=== PATIENT | female | born 1960 | race Caucasian/White ===

== ENCOUNTER 2021-12-12 09:55 | Outpatient (CLI) | payer OTHER, SELFPAY | END 2021-12-12 09:56 | disposition home or self-care (01) | LOC: ANHEH 10:00 | DX: Z76.89 Persons encountering health services in other specified circumstances (principal) | CPT/HCPCS: 80307 ==

== ENCOUNTER 2022-06-18 08:55 | Outpatient (CLI) | payer OTHER, SELFPAY ==
[2022-06-18 15:52] LABS: Alanine Aminotransferase 22 U/L (6-35); Albumin Level 4.4 g/dL (3.5-5.1); Alkaline Phosphatase 93 U/L (38-126); Anion Gap 4 mmol/L (8-16); Aspartate Amino Transferase 29 U/L (14-36); Bilirubin,Total 0.5 mg/dL (0.2-1.3); Blood Urea Nitrogen 17 mg/dL (7-17); Carbon Dioxide 30 mmol/L (22-30); Chloride 104 mmol/L (98-107); Cholesterol 221 mg/dL (0-200); Estimated Glomerular Filt Rate > 60; Glucose 96 mg/dL (65-110); HDL Direct 67 mg/dL; Potassium 3.7 mmol/L (3.4-5.0); Sodium 138 mmol/L (137-145); Triglycerides 152 mg/dL (<150)
[2022-06-18 16:02] LABS: LDL Cholesterol Direct 102 mg/dL
[2022-06-18 16:18] LABS: Thyroid Stimulating Hormone 0.748 uIU/mL (0.465-4.680)
== END 2022-06-18 08:56 | disposition home or self-care (01) ==
LOC: ANHGOSHLAB 08:58
PROVIDERS: Visit Provider Internal Medicine
DX: Z00.00 Encounter for general adult medical examination without abnormal findings (principal); E03.9 Hypothyroidism, unspecified
CPT/HCPCS: 36415; 80053; 80061; 84443

== ENCOUNTER 2023-06-25 09:37 | Outpatient (CLI) | payer OTHER, SELFPAY ==
[2023-06-25 14:15] LABS: Hemoglobin A1C 5.5 % (<5.7)
[2023-06-25 14:27] LABS: Alanine Aminotransferase 15 U/L (6-35); Albumin Level 4.2 g/dL (3.5-5.1); Alkaline Phosphatase 85 U/L (38-126); Anion Gap 3 mmol/L (8-16); Aspartate Amino Transferase 51 U/L (14-36); Bilirubin,Total 0.5 mg/dL (0.2-1.3); Blood Urea Nitrogen 19 mg/dL (7-17); Calcium 9.4 mg/dL (8.4-10.2); Carbon Dioxide 29 mmol/L (22-30); Chloride 107 mmol/L (98-107); Cholesterol 194 mg/dL (0-200); Estimated Glomerular Filt Rate > 60; Glucose 85 mg/dL (65-110); HDL Direct 58 mg/dL; Potassium 4.2 mmol/L (3.4-5.0); Sodium 139 mmol/L (137-145); Triglycerides 120 mg/dL (<150)
[2023-06-25 14:38] LABS: LDL Cholesterol Direct 99 mg/dL
[2023-06-25 15:00] LABS: Thyroid Stimulating Hormone 0.575 uIU/mL (0.465-4.680)
== END 2023-06-25 09:38 | disposition home or self-care (01) ==
LOC: ANHGOSHLAB 09:40
PROVIDERS: Visit Provider Internal Medicine
DX: Z00.00 Encounter for general adult medical examination without abnormal findings (principal); E03.9 Hypothyroidism, unspecified; Z83.3 Family history of diabetes mellitus
CPT/HCPCS: 36415; 80053; 80061; 83036; 84443

== ENCOUNTER → 2024-06-28 16:33 | Outpatient (REF) | payer OTHER, SELFPAY ==
--- OUTSIDE RECORDS SUMMARY | 2024-06-28 18:39 | XMS_ITS | Clinical Summary ---
Author Organization [facility] [place] Address [address] [facility] [place] [address] Phone Care Team Providers Care Handle Turner Name Role Phone Dionicio Christensen MD Primary Care Provider [phone] Allergies Active Allergy Reactions Criticality Noted Date Comments Sulfa (Sulfonamide Antibiotics) Hives High 09/02 Tetracycline Hives High 09/18/2010 Medications venlafaxine (EFFEXOR XR) 150 mg Extended Release 24 hour capsuleIndications :Ultrasound scan abnormal Take 150 mg by mouth daily. Active simvastatin (ZOCOR) 20 mg tabletIndications: Ultrasound scan abnormal Take 20 mg by mouth Daily LATE. Active cholecalciferol, vitamin D3, 5,000 unitIndications:Ul trasound scan abnormal Take by mouth. Active aspirin (FRANKLIN) 81 mg Oral TabIndications:Fib rocystic disease of breast, proliferative type with atypia,Breast cancer screening, high risk patient Take by mouth. Active levothyroxine 100 mcg Oral tablet Take 100 mcg by mouth daily used car lot porter. Active LORazepam (ATIVAN) 1 mg tablet 12/26/2014 Active pantoprazole (PROTONIX) 40 mg Tablet, Delayed Release (E.C.) Take 40 mg by mouth daily. Active losartan (COZAAR) 100 mg tablet Take 100 mg by mouth daily. 06/30/2023 06/29/19 25 Active Active Problems Patient Care Coordination No te Formatting of this note migh t be different from the original. Primary Care: Dionicio Christensen MD Referring Provider: Dionicio Christensen MD [address] [place] [address] [id number] [place] [address] Other: Problem Noted Date Diagnosed Date Abnormal mammogram of left breast 02/12/2017 Unspecified hypothyroidism 10/10/2010 Vitamin D deficiency 10/10/2010 Atypia 10/09/2010 Overview (04/25/2011): 09/18/10 RIGHT bx - flat epithelial atypia - single focus 04/25/11 EVISTA Assessment & Plan (04/20/2013 11:05 AM KEY RINGER): On Evista 2 years mammo [place] Assessment & Plan (04/21/2012 10:35 AM KEY RINGER): On evista 1 year MRI last week Mammo UTD ROV 1 year Assessment & Plan (04/25/2011 10:42 AM KEY RINGER): Atypia Off testosterone and estrogen EVISTA today Cystic breast - sees DMR in October ROV 1 year Assessment & Plan (10/10/2010 10:16 AM CDT): IOV Mastitis in July - fluid pocket - Abx - followup showed mass on ultrasound On hormone pellets JACK/BSO age 38 and has been on HRT Clarissa 2% and 17% Hard lateral right breast - get MRI ROV 6 months Unspecified deficiency anemia IBS (irritable bowel syndrome) Depression Anxiety Joint ache MVP (mitral valve prolapse) Overview (10/09/2010): Slight regurg Hyperlipidemia Encounters Date Type Department Care Team Description 06/23/2024 External Device Data STL ABSTRACTION Provider, Abstract 06/15/2024 External Device Data ST[facility] ABSTRACTION Provider, Abstract 06/08/2024 External Device Data [facility] ABSTRACTION Provider, Abstract 05/27/2024 External Device Data ST[facility] ABSTRACTION Provider, Abstract 05/18/2024 External Device Data [facility] ABSTRACTION Provider, Abstract from Last 3 Months Family History Medical History Relation Name Comments Cancer Father multiple myloma Heart Disease Maternal Grandmother Other Maternal Grandmother diabete s Aneurysm Mother Heart Disease Mother Hypertension Mother Healthy Son 1 Healthy Son 2 Healthy Son 3 Breast Cancer Neg Hx Ovarian Cancer Neg Hx Relation Name Status Comments Father Maternal Grandmother Mother Son 1 Alive Son 2 Alive Son 3 Alive Social History Tobacco Use Types Packs/Day Years Used Date Smoking Tobacco: Former Cigarettes 0.3 15 Smokeless Tobacco: Never Tobacco Cessation:Counseling Given: Not Answered Comments:QUIT 20yrs ago Alcohol Use Standard Drinks/Week Comments Yes 0 (1 standard drink = 0.6 oz pur e alcohol) rare Feeling Safe Answer Date Recorded Fear of Current or Ex-Partner Not on file Emotionally Abused Not on file 02/23/2024 Within the last year, have y ou been kicked, hit, slapped, or otherwise physically hurt by your partner or ex-partner? 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 file Not on file Not on file Not on file Not on file Not on file Not on file Last Filed Vital Signs Vital Sign Reading Time Taken Comments Blood Pressure 124/74 02/23/2024 11:24 AM CDT Pulse 84 02/21/2022 11:33 AM CDT Temperature 36.9 C (98.5 F) 02/21/2022 11:33 AM CDT Respiratory Rate 16 04/18/2016 11:43 AM KEY RINGER Oxygen Saturation 96% 02/21/2022 11:33 AM CDT Inhaled Oxygen Concentration - - Weight 81.6 kg (180 lb) 02/23/2024 11:24 AM CDT Height 175.3 cm (5' 9 ) 02/23/2024 11:24 AM CDT Body Mass Index 26.58 02/23/2024 11:24 AM CDT Plan of Treatment Upcoming Encounters Date Type Department Care Team (Late st Contact Info) Description 08/30/2024 1:00 PM CDT Appointment [facility] Lisa Maxwell [address] [place] [phone] Marycruz Altamirano, VOLUNTEER SPECIALIST [address] [place] [phone] 03/02/2025 10:45 AM CDT Appointment [facility] Lisa Maxwell [address] [place] [phone] Marycruz Altamirano, VOLUNTEER SPECIALIST [address] [place] [address] 03/02/2025 11:45 AM CDT Office Visit [facility] Breast Surgery Lisa Maxwell [address] [place] [place] [address] Marycruz Altamirano, VOLUNTEER SPECIALIST [address] [place] [address] Health Maintenance Due Date Last Done Comments Pre-Diabetes and Diabetes Screening 1960 CERVICAL CANCER SCREENING 1990 FIT-DNA Q 3 years 2005 FIT/FOBT Q 1 year 2005 Flex Sig/CT Colonography Q 5 years 2005 ZOSTER VACCINE (1 of 2) 2010 INFLUENZA VACCINE (#1) 2023 8, 02/21/2016, 03/02/2011 BREAST CANCER SCREENING 03/05/2025 03/05/20, 02/23/2024, 02/21/2023, Additional history exists DTAP/TDAP/TD VACCINES (3 - Td or Tdap) 05/24/2030 05/24/2020, 12/29/2009 COLORECTAL SCREENING 08/05/2032 08/05/2022, 08/05/2022, 06/28/2014, Additional history exists Colorectal Cancer Screening 08/05/2032 RSV VACCINE (60+ or ) (1 - 1-dose 75+ series) 2035 PNEUMOCOCCAL VACCINE 0-64 YEARS Aged Out No longer eligible based on patient's age to complete this topic Procedures Procedure Name Priority Date/Time Associated Diagnosis Comments MAMMO DIAG UNI LEFT 3D RATNA W OR WO CAD Routine 03/05/2024 2:47 PM CDT Abnormal mammogram from Last 3 Months or Most Recently Relevant to Health Maintenance Results * MAMMO 3D RATNA DIAGNOSTIC UNI LT W OR WO CAD (03/05/2024 2:47 PM CDT) Anatomical Region Laterality Modality Breast Left Mammography 03/05/2024 2:47 PM CDT Impressions 03/05/2024 3:39 PM CDT IMPRESSION: A small benign lesion at the inferior aspect of the left breast likely representing a cyst. It has decreased in size. RECOMMENDATIONS: Bilateral annual screening mammogram. LEFT BREAST OVERALL ASSESSMENT: BI-RADS Category 2 benign findings. DICTATION LOCATION: [facility] Jessica Maxwell Narrative 03/05/2024 3:39 PM CDT MAMMOGRAPHY DIGITAL DIAGNOSTIC UNILATERAL LEFT 3-D TOMOGRAPHY WITH OR WITHOUT CAD, 03/05/2024. HISTORY: The screening mammogram dated 02/23/2024 showed a small mass in the inferior aspect of the left breast. MAMMOGRAPHIC FINDINGS: The left breast is heterogeneously dense which may lower sensitivity of mammography. A small isodense mass with smooth margins in the inferior aspect of the left breast is again visualized which has decreased in size. It suggests a benign lesion such as a cyst. No malignant calcification or architectural distortion is identified. Procedure Note Lilly Mar MD - 03/05/2024 MAMMOGRAPHY DIGITAL DIAGNOSTIC UNILATERAL LEFT 3-D TOMOGRAPHY WITH OR WITHOUT CAD, 03/05/2024. HISTORY: The screening mammogram dated 02/23/2024 showed a small mass in the inferior aspect of the left breast. MAMMOGRAPHIC FINDINGS: The left breast is heterogeneously dense which may lower sensitivity of mammography. A small isodense mass with smooth margins in the inferior aspect of the left breast is again visualized which has decreased in size. It suggests a benign lesion such as a cyst. No malignant calcification or architectural distortion is identified. IMPRESSION: A small benign lesion at the inferior aspect of the left breast likely representing a cyst. It has decreased in size. RECOMMENDATIONS: Bilateral annual screening mammogram. LEFT BREAST OVERALL ASSESSMENT: BI-RADS Category 2 benign findings. DICTATION LOCATION: [facility] Jessica Maxwell Marycruz Altamirano [facility] MAMMO ORDERABLES Final Re sult from Last 3 Months or Most Recently Relevant to Health Maintenance Insurance [facility] [id number] Advance Directives For more information, please contact: [phone] * Full Code (Latest Code Status on File) Date Activated Date Inactivated Comments 09/27/2010 7:46 AM 09/27/2010 1:32 PM Care Teams Handle Turner Relationship Specialty Start Date End Date Dionicio Christensen MD [address] [place] [address] DR SOTO [address] [place] [phone] PCP - General Internal Medicine 09/18/10
--- OUTSIDE RECORDS SUMMARY | 2024-06-28 18:39 | XMS_ITS | Referral Summary ---
Author Organization [facility] Address [address] [place] [phone] Care Team Providers Care Paper Reeler Name Role Phone Dionicio Christensen MD Primary Care Provider Encounters Date Type Department Care Team Description 05/14/2024 Orders Only [facility] Primary Care at [address] [place] [address] Dionicio Christensen MD 05/14/2024 Telephone [facility] Medical [facility] Primary Care at [address] [phone] Dionicio Christensen MD Med Refill from Last 3 Months Allergies Active Allergy Reactions Criticality Noted Date Comments Sulfa (Sulfonamide Antibiotics) Rash Medium Sulfanilamide Rash Medium Tetracycline Rash Medium Medications aspirin 81 mg tablet take 1 tablet by oral route every day 0 0 06/03/2016 Active cholecalciferol (VITAMIN D3) 1,000 unit capsule 0 10/12/2009 Active vitamin B complex capsule Take 1 capsule by mouth daily Active venlafaxine XR (EFFEXOR-XR) 150 mg 24 hr capsule Take 1 capsule (150 mg total) by mouth daily 90 capsule 3 06/30/2023 Active LORazepam (ATIVAN) 0.5 mg tablet TAKE 1 TABLET BY MOUTH 3 TIMES DAILY 90 tablet 5 02/09/2024 Active linaCLOtide (LINZESS) 145 mcg capsule Take 1 capsule (145 mcg total) by mouth daily 15 capsule 1 02/20/2024 Active levothyroxine (SYNTHROID) 100 mcg tablet Take 1 tablet (100 mcg total) by mouth daily 90 tablet 3 05/14/2024 Active losartan (COZAAR) 100 mg tablet Take 1 tablet (100 mg total) by mouth daily To lower BP 90 tablet 3 05/14/[address] (PROTONIX) 40 mg EC tablet Take 1 tablet (40 mg total) by mouth daily 90 tablet 3 05/14/2024 Active simvastatin (ZOCOR) 20 mg tablet Take 1 tablet (20 mg total) by mouth nightly 90 tablet 3 05/14/2024 Active Active Problems Problem Noted Date Diagnosed Date Moderate episode of recurrent major depressive d isorder 02/20/2024 Personal history of colonic polyps 07/02/2022 Overview (07/02/2022): Added automatically from request for surgery [id number] Anxiety 03/19/2022 Deficiency anemia 03/19/2022 IBS (irritable bowel syndrome) 03/19/2022 Joint ache 03/19/2022 MVP (mitral valve prolapse) 03/19/2022 Overview (03/19/2022): Slight regurg Ulnar nerve compression, right 12/31/2021 Ulnar tunnel syndrome of right wrist 12/31/2021 Cubital tunnel syndrome on right 12/31/2021 History of 2019 novel coronavirus disease (COVID -19) 06/26/2021 Lower resp. tract infection 01/26/2019 Assessment & Plan (01/26/2019 9:26 AM CDT): Recommended 10 day course of Augmentin to assist with improved gram + bacterial coverage given little improvement with Z-Alexys. I did encourage her to call back into the clinic with persistent sx to consider CXR Abnormal mammogram of left breast 02/12/2017 Hypothyroidism 09/18/2013 Overview (08/08/2016): HYPOTHYROIDISM NOS Multiple-type hyperlipidemia 09/18/2013 Overview (08/09/2016): MIXED HYPERLIPIDEMIA Malaise and fatigue 09/18/2013 Overview (08/09/2016): MALAISE AND FATIGUE NEC Vitamin D deficiency 10/10/2010 Fibrocystic disease of breas t, proliferative type with atypia 10/09/2010 Overview (03/19/2022): 09/18/10 RIGHT bx - flat epithelial atypia - single focus 04/25/11 EVISTA Last Assessment & Plan: On Evista 2 years mammo October Depression Overview (06/23/2020): Depression Immunizations Immunization Administration Dates Next Due Hep A, Adult 05/05/2001 Hep B Vaccine 05/05/1999 Influenza, Quadrivalent, Spl it, Preservative Free, Intradermal 02/21/2016 Influenza, Quadrivalent, Spl it, Preservative Free, Intramuscular 02/19/2018 Influenza, Trivalent, IM (MDV) 03/02/2011 Influenza, Unspecified 02/20/2024(Deferr ed: Patient Refused),02/19/2024,02/08/2022, 021,02/25/2020,02/17/2019,01/26/2019(D eferred: Patient Refused - not available) MMR 01/11/2010 Pfizer SARS-CoV-2 Monovalent Vaccination (12+ Yrs) PURPLE 05/11/2020,04/23/2020 Td, adsorbed 12/28/2001 Tdap 05/24/2020,12/29/2009 Social History Tobacco Use Types Packs/Day Years Used Date Smoking Tobacco: Never Smokeless Tobacco: Never Tobacco Cessation:Counseling Given: Not Answered Alcohol Use Standard Drinks/Week Comments Yes 0 (1 standard drink = 0.6 oz pur e alcohol) AUDIT-C Answer Date Recorded Q1: How often do you have a drink containing alc ohol? Monthly or less 06/30/2023 Average Number of Drinks Not on file 024 Frequency of Binge Drinking Not on file 06/06 PHQ-2 Answer Date Recorded PHQ-2 Total Score (If total score is 3 or more points, staff should administer the PHQ-9) 0 02/20/2024 Personal Safety Answer Date Recorded Have you ever been in or are you currently in a harmful physical or emotional relationship or is someone making you feel afraid or unsafe? Denies 08/05/2022 Comments No Sex and Gender Information Value Date Recorded Sex Assigned at Not on file Legal Sex Female 11:52 PM SYSTEMS SUPPORT OFFICER Gender Identity Female 02/20/2024 5:42 PM CDT Sexual Orientation Not on file Last Filed Vital Signs Vital Sign Reading Time Taken Comments Blood Pressure 142/80 02/20/2024 3:26 PM CDT Pulse 100 02/20/2024 3:26 PM CDT Temperature 36.6 C (97.8 F) 02/20/2024 3:26 PM CDT Respiratory Rate 16 02/20/2024 3:26 PM CDT Oxygen Saturation 98% 02/20/2024 3:26 PM CDT Inhaled Oxygen Concentration - - Weight 81.6 kg (180 lb) 02/20/2024 3:26 PM CDT Height 175.3 cm (5' 9 ) 02/20/2024 3:26 PM CDT Body Mass Index 26.58 02/20/2024 3:26 PM CDT Plan of Treatment Not on file Procedures Procedure Name Priority Date/Time Associated Diagnosis Comments COLONOSCOPY 08/05/2022 10:07 AM CDT SCREENING MAMMOGRAM 2D BILATERAL Schedule Routine, Read Routine (OP Routine) 02/16/2019 DEXA AXIAL SKELETON BONE DENSITY 1 OR MORE SITES Schedule Routine, Read Routine (OP Routine) 07/03/2017 1:02 PM SYSTEMS SUPPORT OFFICER Other osteoporosis without current pathological fracture HEPATITIS C AB REFLEX RNA QUANT PCR Routine 06/04/2017 8:13 AM SYSTEMS SUPPORT OFFICER from Last 3 Months or Most Recently Relevant to Health Maintenance Results * COLONOSCOPY (08/05/2022 10:07 AM CDT) Anatomical Region Laterality Modality Other Narrative Procedure Note Mark Dolan MD - 08/05/2022 10:07 AM CDT [facility] Patient Name: Maryellen Ornelas Procedure Date: 08/05/2022 10:07 AM Date of : 1960 Admit Type: Outpatient Age: 62 Gender: Female Attending MD: Mark Dolan M.D. Room: [facility] ENDOSCOPY ROOM 1 Note Status: Finalized Patient Profile: This is a 62 year old female. History of polyps inthe past. No specific GI complaint. No family historyof colon cancer. Procedure: Colonoscopy Indications: High risk colon cancer surveillance: Personalhistory of colonic polyps, Last colonoscopy: June2014 Referring MD: Dionicio Christensen M.D. Providers: Mark Dolan M.D. Impression: - The entire examined colon is normal. - Internal hemorrhoids. - No specimens collected. Recommendation: - Repeat colonoscopy in 8 years for screeningpurposes. Medicines: Monitored Anesthesia Care Complications: No immediate complications. Estimated Blood Loss: Estimated blood loss: none. Procedure: Pre-Anesthesia Assessment: - Prior to the procedure, a History and Physicalwas performed, and patient medications and allergieswere reviewed. The patient's tolerance of previous anesthesia was also reviewed. The risks andbenefits of the procedure and the sedation options and risks were discussed with the patient. All questions were answered, and informed consent was obtained. Prior Anticoagulants: The patient has taken noanticoagulant or antiplatelet agents. ASA Grade Assessment: II -A patient with mild systemic disease. After reviewing the risks and benefits, the patient was deemed in satisfactory condition to undergo the procedure. The benefits, risks and alternatives of theprocedure and sedation were discussed and informed consentwas obtained. All questions were answered. Please referto the signed informed consent document in the medical record. The bowel preparation used was Miralax and bisacodyl tablets via split dose instruction. The scope was passed under direct vision. The Pediatric Colonoscope [id number]-H190L [id number] was introducedthrough the anus and advanced to the the cecum, identifiedby appendiceal orifice and ileocecal valve. Thequality of the bowel preparation was excellent. Bowel prepwas administered using a split dose. Findings: The perianal and digital rectal examinations were normal. The cecum appeared normal. The colon (entire examined portion) appeared normal. No polyps and no mass lesions noted. Internal hemorrhoids were found during retroflexion. The hemorrhoids were small. Electronically signed by Mark Dolan M.D. Mark Dolan M.D. 08/05/2022 12:16:22 PM Number of Addenda: 0 Note Initiated On: 08/05/2022 10:07 AM Procedure Code(s): --- Professional --- 79646, Colonoscopy, flexible; diagnostic, including collection of specimen(s) by brushing or washing, when performed (separateprocedure) Diagnosis Code(s): --- Professional --- Z86.010, Personal history of colonic polyps K64.8, Other hemorrhoids CPT copyright 2020 [employer]. All rights reserved. The codes documented in this report are preliminary and upon bilingual counter sales retail reviewmay be revised to meet current compliance requirements. Recognized by the [employer] for promoting quality in endoscopy us Mark Dolan MD ENDOSCOPY PROCEDURES Final Result * Screening Mammogram 2D Bilateral (02/16/2019) Anatomical Region Laterality Modality Breast Bilateral Mammography Impressions 02/16/2019 Impression: Negative screening mammogram. Recommendation: Routine annual follow-up. Results found in Care Everywher. us Historical Provider MD [facility] MAMMO PROCEDURES Marilyn l Result * Dexa Axial Skeleton Bone Density 1 or 2 Site (07/03/2017 1:02 PM SYSTEMS SUPPORT OFFICER) Anatomical Region Laterality Modality Body N/A Other Impressions 07/03/2017 1:04 PM SYSTEMS SUPPORT OFFICER Normal bone mineral density. COMMENT: W.H.O. defines the T-score of between -1 and -2.5 as osteopenia, the level at which there may be an increased risk of developing osteoporosis and fractures in the future. Osteoporosis is defined as T-score lower than -2.5 (significantly increased risk of fracture due to osteoporosis). T-score is a comparison to peak bone mineral density of young adult reference population. Z-score is a comparison to bone mineral density of sex and age group population. Electronically signed by: Henrique Rosenbaum M.D. Narrative 07/03/2017 1:04 PM SYSTEMS SUPPORT OFFICER EXAM: DEXA Bone Density Axial HISTORY: Other osteoporosis without current pathological fracture Assess bone density COMPARISON: None FINDINGS: The mean bone mineral content of the lumbar spine is 0.999 g/cm2 . The T-score is -0.4 consistent with normal bone mineral density. The mean bone mineral content of the hip is 0.883 g/cm2 . The T-score is -0.5 consistent with normal bone mineral density. Procedure Note Henrique Rosenbaum MD - 07/03/2017 EXAM: DEXA Bone Density Axial HISTORY: Other osteoporosis without current pathological fracture Assess bone density COMPARISON: None FINDINGS: The mean bone mineral content of the lumbar spine is 0.999 g/cm2 . The T-score is -0.4 consistent with normal bone mineral density. The mean bone mineral content of the hip is 0.883 g/cm2 . The T-score is -0.5 consistent with normal bone mineral density. IMPRESSION: Normal bone mineral density. COMMENT: W.H.O. defines the T-score of between -1 and -2.5 as osteopenia, the level at which there may be an increased risk of developing osteoporosis and fractures in the future. Osteoporosis is defined as T-score lower than -2.5 (significantly increased risk of fracture due to osteoporosis). T-score is a comparison to peak bone mineral density of young adult reference population. Z-score is a comparison to bone mineral density of sex and age group population. Electronically signed by: Henrique Rosenbaum M.D. Dionicio Christensen MD IMG DXA PROCEDURES Marilyn l Result * Hepatitis C Antibody Reflex Hepatitis C RNA Quantitative PCR (06/04/2017 8:13 AM SYSTEMS SUPPORT OFFICER) Hep C Ab Negative Negative PREM Blood specimen (specimen) 06/04/2017 8:13 AM SYSTEMS SUPPORT OFFICER 06/04/2017 2:10 PM SYSTEMS SUPPORT OFFICER Narrative PREM - 06/04/2017 3:01 PM SYSTEMS SUPPORT OFFICER Dionicio Christensen MD LAB MICROBIOLOGY - GENE RAL ORDERABLES Final Result PREM [id number] Department [place] [address] from Last 3 Months or Most Recently Relevant to Health Maintenance Insurance Member Subscriber Plan / Payer (Ef fective 2021-Present) Name:Maryellen Ornelas Siria Relation to Subscriber:Self Name:Maryellen Ornelas Payer ID:[id number] (NAIC) Type:[facility] H[facility]/PPO Address: [place] [phone] Advance Directives For more information, please contact: [phone] * Full Code (Latest Code Status on File) Date Activated Date Inactivated Comments 08/05/2022 10:07 AM 08/05/2022 4:58 PM * Full Code Date Activated Date Inactivated Comments 08/05/2022 10:07 AM 08/05/2022 10:07 AM Care Teams Paper Reeler Relationship Specialty Start Date End Date Dionicio Christensen MD PCP - General 05/13/13
--- OUTSIDE RECORDS SUMMARY | 2024-06-28 18:39 | XMS_ITS | Clinical Summary ---
Author Organization [facility] Building A Address [address] [place] [address] Care Team Providers Care Marine Pipefitter Helper Name Role Phone Dionicio Christensen MD Primary Care Provider Allergies Active Allergy Reactions Criticality Noted Date [...] (07/02/2022): Added automatically from request for surgery [id number] Anxiety 03/19/2022 Deficiency anemia 03/19/2022 IBS (irritable [...] years mammo October Depression Overview (06/23/2020): Depression Encounters Date Type Department Care Team Description 05/14/2024 Orders Only [facility] Primary Care at [address] [place] [phone] Dionicio Christensen MD 05/14/2024 Telephone [facility] Medical [facility] Primary Care at [address] [place] [phone] Dionicio Christensen MD Med Refill from Last 3 Months Immunizations Immunization Administration Dates Next Due Hep A, Adult 05/05/2001 Hep B Vaccine 05/05/1999 Influenza, Quadrivalent, Spl it, Preservative Free, Intradermal 02/21/2016 Influenza, Quadrivalent, Spl it, Preservative Free, Intramuscular 02/19/2018 Influenza, Trivalent, IM (MDV) 03/02/2011 Influenza, Unspecified 02/20/2024(Deferr ed: Patient Refused),02/19/2024,02/08/2022, 021,02/25/2020,02/17/2019,01/26/2019(D eferred: Patient Refused - not available) MMR 01/11/2010 Pfizer SARS-CoV-2 Monovalent Vaccination (12+ Yrs) PURPLE 05/11/2020,04/23/2020 Td, adsorbed 12/28/2001 Tdap 05/24/2020,12/29/2009 Surgical History Surgery Date Site/Laterality Comments OTHER SURGICAL HISTORY 2006 ULNAR NERVE DECOMPRESSION R ELBOW OTHER SURGICAL HISTORY 2004 R SHOULDER REPAIR OTHER SURGICAL HISTORY 2003 R SHOULDER BONE SPUR REPAIR OTHER SURGICAL HISTORY 1985 SEPTORHINOPLASTY TURBENECTOMY SINUS TOTAL ABDOMINAL HYSTERECTOMY W/ BILATERAL SALPINGOOPHORECTOMY Hysterectomy, total abdominal, BSO SECTION section 1983, 1988 HYSTERECTOMY Hysterectomy LAPAROSCOPY COLONOSCOPY 06/28/2014 Medical History Medical History Date Comments 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 Hx Other Medical 02-ORTHOPEDIST Hx Other Medical 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 ompression right elbow Hx Other Medical right shoulder acroplasty Hx Other Medical septo rhinoplas ty Depression Depression PONV (postoperative nausea and vomiting) Motion sickness Allergic rhinitis GERD (gastroesophageal reflux disease) Hypothyroidism Family History Medical History Relation Name Comments Cancer Father Cancer -; Cause of : Cancer - Heart disease Maternal Grandmother Heart failure Maternal Grandmother Conges tive heart failure; Hypertension Maternal Grandmother Hyperte nsion; Coronary artery disease Mother Shay nary artery disease; Heart disease Mother Hypertension Mother Hypertension; Stroke Mother Cancer Other 1 Family history of Cancer; Other Other 2 Family history of Cancer, bone; Hypertension Other 3 Family history of Hypertension; Relation Name Status Comments Father (Age 74) Maternal Grandmother Mother Other 1 Other 2 Other 3 Social History Tobacco Use Types Packs/Day Years [...] on file Legal Sex Female 11:52 PM TEACHER ASST Gender Identity Female 02/20/2024 5:42 PM CDT Sexual Orientation Not on file Obstetrics History Last Filed Vital Signs Vital Sign Reading [...] 02/20/2024 3:26 PM CDT Plan of Treatment Health Maintenance Due Date Last Done Comments Zoster Vaccine (1 of 2) 2010 Osteoporosis Screening-Bone Density Scan 07/04/2019 07/03/2017, 10/12/2008 Covid-19 Vaccine ( season) 2024 04/13/2021, 05/11/2020, 04/23/2020 Regular Well Visit/Exam 18-64 06/30/2024 06/30/2023, 06/27/2022, 06/26/2021, Additional history exists Depression Screening 02/19/2025 02/20/2024, 06/30/2023, 06/30/2023, Additional history exists Breast Cancer Screening-Mammogram 02/22/2025 02/23/2024, 02/23/2024, 02/21/2023, Additional history exists Colon Cancer Screening-Colonoscopy 08/06/2027 08/05/2022, 06/28/2014, 06/28/2014, Additional history exists DTaP/Tdap/Td Vaccine (3 - Td or Tdap) 05/24/2030 05/24/2020, 12/29/2009, 12/28/2001 Hepatitis B Screening Completed 05/05/1999 Hepatitis C Screening Completed 06/04/2017, 018 Colon Cancer Screening-CT Colonography Discontinued 08/05/2022, 06/28/2014, 06/28/2014, Additional history exists Colon Cancer Screening-DNA Stool Discontinued 08/05/2022, 06/28/2014, 06/28/2014, Additional history exists Colon Cancer Screening-FIT Discontinued 08/05, 06/28/2014, 06/28/2014, Additional history exists Colon Cancer Screening-Sigmoidoscopy Discontinued 08/05/2022, 06/28/2014, 06/28/2014, Additional history exists Influenza Vaccine Completed 02/19/2024, , 02/08/2022, Additional history exists Pneumococcal vaccine <65 Aged Out No longer eligible based on patient's age to complete this topic Procedures Procedure Name Priority Date/Time Associated Diagnosis Comments COLONOSCOPY 08/05/2022 10:07 AM CDT SCREENING MAMMOGRAM 2D BILATERAL Schedule Routine, Read Routine (OP Routine) 02/16/2019 DEXA AXIAL SKELETON BONE DENSITY 1 OR MORE SITES Schedule Routine, Read Routine (OP Routine) 07/03/2017 1:02 PM TEACHER ASST Other osteoporosis without current pathological fracture HEPATITIS C AB REFLEX RNA QUANT PCR Routine 06/04/2017 8:13 AM TEACHER ASST from Last 3 Months or Most Recently Relevant to Health Maintenance Results * COLONOSCOPY (08/05/2022 10:07 AM CDT) Anatomical Region Laterality Modality Other Narrative Procedure Note Mark Dolan MD - 08/05/2022 10:07 AM CDT [facility] Patient Name: Maryellen Ornelas Procedure Date: 08/05/2022 10:07 AM Date of : 1960 Admit Type: Outpatient Age: 62 Gender: Female Attending MD: Mark Dolan M.D. Room: [facility] ENDOSCOPY ROOM 1 Note Status: Finalized Patient [...] under direct vision. The Pediatric Colonoscope [id number]-H190L [id number] was introducedthrough the anus and advanced to [...] 10:07 AM Procedure Code(s): --- Professional --- 00400, Colonoscopy, flexible; diagnostic, including collection of specimen(s) by brushing or washing, when performed (separateprocedure) Diagnosis Code(s): --- Professional --- Z86.010, Personal history of colonic polyps K64.8, Other hemorrhoids CPT copyright 2020 [employer]. All rights reserved. The codes documented in this report are preliminary and upon level vial inside grinder reviewmay be revised to meet current compliance requirements. Recognized by the [place] [employer] for promoting quality in endoscopy Mark Dolan MD ENDOSCOPY PROCEDURES Final Result * Screening Mammogram 2D Bilateral (02/16/2019) Anatomical Region Laterality Modality Breast Bilateral Mammography Impressions 02/16/2019 Impression: Negative screening mammogram. Recommendation: Routine annual follow-up. Results found in Care Everywher. Historical Provider IMG MAMMO PROCEDURES Marilyn l Result * Dexa Axial Skeleton Bone Density 1 or 2 Site (07/03/2017 1:02 PM TEACHER ASST) Anatomical Region Laterality Modality Body N/A Other Impressions 07/03/2017 1:04 PM TEACHER ASST Normal bone mineral density. COMMENT: W.H.O. defines [...] Henrique Rosenbaum M.D. Narrative 07/03/2017 1:04 PM TEACHER ASST EXAM: DEXA Bone Density Axial HISTORY: Other [...] C RNA Quantitative PCR (06/04/2017 8:13 AM TEACHER ASST) Hep C Ab Negative Negative PREM Blood specimen (specimen) 06/04/2017 8:13 AM TEACHER ASST 06/04/2017 2:10 PM TEACHER ASST Narrative PREM - 06/04/2017 3:01 PM TEACHER ASST Dionicio Christensen MD LAB MICROBIOLOGY - GENE RAL ORDERABLES Final Result PREM [id number] Department [place] [address] from Last 3 Months or Most Recently Relevant to Health Maintenance Insurance Advance Directives For more information, please contact: [phone] * Full Code (Latest Code Status on File) Date Activated Date Inactivated Comments 08/05/2022 10:07 AM 08/05/2022 4:58 PM * Full Code Date Activated Date Inactivated Comments 08/05/2022 10:07 AM 08/05/2022 10:07 AM Care Teams Marine Pipefitter Helper Relationship Specialty Start Date End Date Dionicio Christensen MD PCP - General 05/13/13
--- OUTSIDE RECORDS SUMMARY | 2024-06-28 18:39 | XMS_ITS | Encounter Summary ---
Author Organization [facility] Address [address] [place] [address] Phone Care Team Providers Care Medicaid Analyst Name Role Phone Dionicio Christensen MD Primary Care Provider Encounter Details Date Type Department Care Team (Late st Contact Info) Description 06/04/2017 Orders Only [facility] ProviderJoe MD [address] [place] [id number] Social History Tobacco Use Types Packs/Day Years Used Date Smoking Tobacco: Never Alcohol Use Standard Drinks/Week Comments Yes 0 (1 standard drink = 0.6 oz pur e alcohol) Comments Unknown Sex and Gender Information Value Date Recorded Sex Assigned at Not on file Legal Sex Female 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 Historical Provider LAB BLOOD ORDERABLES Marilyn l Result documented in this encounter Visit Diagnoses Not on filedocumented in this encounter Additional Health Concerns Infection Onset Date Last Indicated Resolved Time COVID: Suspected 05/17/2021 05/17/2021 05/27/2021 3:05 AM BRUSHER OPERATOR documented as of this encounter Care Teams Medicaid Analyst Relationship Specialty Start Date End Date Dionicio Christensen MD PCP - General 05/13/13 documented as of this encounter
--- OUTSIDE RECORDS SUMMARY | 2024-06-28 18:39 | XMS_ITS | Continuity of Care Document ---
Author Organization [facility] ices Address [address] [place] [phone] Phone Care Team Providers Care Leading Firefighter Name Role Phone Yari Redd Unavailable Unavailable Allergies, Adverse Reactions, Alerts Substance Reaction Status Criticality tetracycline Active No Information Sulfa (Sulfonamide Antibiotics) Active No Information Medications Medication Instructions Dosage Effective Dates (start - stop) Status Comments Tirosint 100 mcg capsule take 1 capsule by oral route every day 100 MCG - Active Zocor 20 mg tablet take 1 tablet by oral route every day in the evening 20 MG - Active Vitamin D2 50,000 unit capsule take 1 capsule by oral route every week - Active lorazepam 2 mg/mL oral concentrate take 0.5 milliliter by oral route 3 times every day as needed 1 MG - Active Effexor XR 150 mg capsule,extended release take 1 capsule by oral route every day 150 MG - Active Aspirin Low Dose 81 mg tablet,delayed release take 1 tablet by oral route every day 81 MG - Active Cheratussin AC 10 mg-100 mg/5 mL oral liquid take 5-10 ml as needed for cough at bedtime, may repeat after 4 hours if needed - No Longer Active Procedures Procedure Date OFFICE/OUTPATIENT VISIT, [facility] Results Test Name Date and Time Measure Units Reference Range Abnormal Flag Status Commen ts Panel Description: RAPID STREP Final RAPID STREP 10:26:00 NEGATIVE NORMAL - NEGATIVE Final Advance Directives Directive Yes / No Effective Date File Name No Information Encounters Encounter Description Practice Location Reason(s) For Visit Diagnoses Date Provider Providers Copied on Encounter OFFICE/OUTPAT IENT VISIT, [facility], [address] [place] [address], [id number], tel:[phone] [place] SORE THROAT (chief complaint) Acute sinusitis Clare Greenberg. [address] [place] [address], [place], [address], [place]. tel:[phone] Family History Family Member Type Diagnosis Age At Onset No Information Payers Payer name Insurance type Covered green party ID Authoriza tion(s) No Information Social History Type Description Quantity Date Captured Comments Alcohol Use Details Caffeine Use Details Tobacco Use Status Current non-smoker 18 Smoking Status Never smoker Non-Smoking Tobacco Use Details : No Details Available : No Details Available Sex Female Vital Signs Date / Time: Height Weight BMI Pulse Rate Blood Pressure Temperature Respiratory Rate Body Surface Area Head Circumference Head Circ. Percentile Wt./Christoph. Percentile BMI percentile Pulse Ox Inhaled Ox 9:40 AM 69.00 in 79.832 kg (176.00 lbs) 25.9 9 kg/m eter (2) 98 /min 142/92 mm[Hg] 97.50 F 14 /min 96 % Chief Complaint And Reason For Visit From encounter dated '02/02/2018 09:34'. SORE THROAT (chief complaint). Description: Onset: 5 Days. The severity of the problem is moderate.The problem has not changed. Symptoms are associated with sick family member. Aggravating factors include lying down. Symptoms are relieved by decongestants. Associated symptoms include cough, fatigue, fever, headache, nasal congestion, otalgia, postnasal drainage, rhinitis and sinus pressure. Pertinent negatives include dyspnea, rash, sputum or wheezing. Additional information: Pt presents todaywith sore throat, right ear pain, headache, and nasal drainage. Reason For Referral Reason For Referral No Information History Of Present Illness Encounter Date Complaint History Of Prese nt Illness SORE THROAT Onset: 5 Days. T he severity of the problem is moderate. The problem has not changed. Symptoms are associated with sick family member. Aggravating factors include lying down. Symptoms are relieved by decongestants. Associated symptoms include cough, fatigue, fever, headache, nasal congestion, otalgia, postnasal drainage, rhinitis and sinus pressure. Pertinent negatives include dyspnea, rash, sputum or wheezing. Additional information: Pt presents today with sore throat, right ear pain, headache, and nasal drainage. Functional Status Date Functional Assessmen t No Information Instructions Date Instruction Additional Infor mation Call for fever 102 o r higher or if symptoms persist longer than 7-10 days as this is an indication that there may be a bacterial sinus infection requiring antibiotics. This is likely viral. Related to Acute sinusitis Continue cold medici ne and decongestant for sinus relief, mucous, and cough Related to Acute sinusitis Increase fluids. Rest. Related t o Acute sinusitis Warm fluids, throat lozenges for sore throat Related to Acute sinusitis Assessments Type Assessment Date assessment Acute sinusitis Mental Status Date Cognitive Assessment Orientation - [place] ed to time, place, person, situation. Patient Care Teams Name Effective Dates (start - stop) Status Members No Information
== END ==
LOC: ANHLAB 16:33
PROVIDERS: PCP Internal Medicine; Visit Provider Physician Assistant Surgical
DX: D48.5 Neoplasm of uncertain behavior of skin (principal)
CPT/HCPCS: 88305

== ENCOUNTER 2024-07-01 08:17 | Outpatient (CLI) | payer OTHER, SELFPAY ==
[2024-07-01 14:57] LABS: Basophils Absolute Auto 0.1 K/mm3 (0.0-0.1); Basophils Percent Auto 1.3 % (0.2-1.2); Eosinophils Absolute Auto 0.3 K/mm3 (0-0.3); Eosinophils Percent Auto 3.8 % (0-4.4); Hematocrit 34.8 % (37.0-47.0); Hemoglobin 10.7 g/dL (12.0-15.0); Immature Granulocyte Absolute 0.03 K/mm3 (0.00-0.031); Immature Granulocyte Percent A 0.4 % (0-0.5); Lymphocytes Absolute Auto 1.99 K/mm3 (0.9-3.2); Mean Corpuscular HGB Conc 30.7 g/dl (32-36); Mean Corpuscular Hemoglobin 28.7 pg (26-34); Mean Corpuscular Volume 93.3 fl (80-100); Mean Platelet Volume 11.3 fl (7.4-10.4); Monocytes Absolute Auto 0.6 K/mm3 (0.1-0.6); Monocytes Percent Auto 8.3 % (2.6-8.5); Neutrophils Absolute Auto 4.1 K/mm3 (1.3-6.7); Neutrophils Percent Auto 58.2 % (45.5-73.1); Platelet Count Result 280 k/mm3 (150-375); Red Blood Count 3.73 M/mm3 (4.2-5.4); Red Cell Distribution Width 13.8 % (11.5-14.5); White Blood Count 7.1 K/mm3 (4.5-10.0)
[2024-07-01 15:28] LABS: Alanine Aminotransferase 18 U/L (6-35); Alkaline Phosphatase 83 U/L (38-126); Anion Gap 6 mmol/L (4-12); Aspartate Amino Transferase 53 U/L (14-36); Bilirubin,Total 0.5 mg/dL (0.2-1.3); Blood Urea Nitrogen 19 mg/dL (7-17); Calcium 9.3 mg/dL (8.4-10.2); Carbon Dioxide 28 mmol/L (22-30); Chloride 107 mmol/L (98-107); Cholesterol 181 mg/dL (0-200); Estimated Glomerular Filt Rate > 60; Glucose 79 mg/dL (65-110); HDL Direct 59 mg/dL; Potassium 4.6 mmol/L (3.4-5.0); Sodium 141 mmol/L (137-145); Triglycerides 149 mg/dL (<150)
[2024-07-01 15:39] LABS: LDL Cholesterol Direct 82 mg/dL
[2024-07-01 15:57] LABS: Thyroid Stimulating Hormone 0.478 uIU/mL (0.465-4.680)
== END 2024-07-01 08:18 | disposition home or self-care (01) ==
LOC: ANHGOSHLAB 08:19
PROVIDERS: PCP Internal Medicine; Visit Provider Internal Medicine
DX: Z00.00 Encounter for general adult medical examination without abnormal findings (principal); D50.8 Other iron deficiency anemias; E03.9 Hypothyroidism, unspecified
CPT/HCPCS: 36415; 80053; 80061; 84443; 85025

== ENCOUNTER 2024-07-15 12:33 | Outpatient (CLI) | payer OTHER, SELFPAY ==
--- OUTSIDE RECORDS SUMMARY | 2024-07-15 14:00 | XMS_ITS | Referral Summary ---
Author Organization [facility] A Address [address] [place] [address] Care Team Providers Care Medicine Technologist Name Role Phone Dionicio Christensen MD Primary Care Provider Encounters Date Type Department Care Team Description 07/07/2024 Telephone [facility] Gastroenterology at [address] [place] [phone] Deborah Patton LPN 07/05/2024 Orders Only [facility] Primary Care at [address] [place] [phone] Dionicio Christensen MD Iron deficiency anemia due to chronic blood loss (Primary Dx) 07/05/2024 1:00 PM SNUFF DRIER Office Visit [facility] Primary Care at [address] [place] [phone] Dionicio Christensen MD Annual physical exam (Primary Dx); BMI 26.0-26.9,adult; Acquired hypothyroidism; Moderate episode of recurrent major depressive disorder (HCC); Multiple-type hyperlipidemia; Irritable bowel syndrome with constipation; Hypertension, essential; Gastroesophageal reflux disease without esophagitis; Iron deficiency anemia due to chronic blood loss; B12 deficiency; Arthritis of left knee 07/02/2024 Telephone [facility] Orthopedic and Sports Medicine [address] [place] [phone] Nicolas Gunter MD Surgical Clearance 07/02/2024 Orders Only [facility] Orthopedic and Sports Medicine [address] [place] [phone] Nicolas Gunter MD Pes anserine bursitis (Primary Dx); Pre-op testing; S/P total knee arthroplasty, left 07/02/2024 11:50 AM SNUFF DRIER Ancillary Procedure [facility] Imaging at [address] [place] [address] [phone] Acute pain of left knee 07/02/2024 11:45 AM SNUFF DRIER Ancillary Procedure [facility] Imaging at [address] [place] [address] [address] Acute pain of left knee 07/02/2024 11:45 AM SNUFF DRIER Office Visit [facility] Orthopedic and Sports Medicine [address] [place] [phone] Nicolas Gunter MD Primary osteoarthritis of left knee (Primary Dx); Acute pain of left knee; Greater trochanteric bursitis of left hip; Pes anserine bursitis 07/01/2024 Orders Only [facility] [address] [place] [address] Dionicio Christensen MD 06/29/2024 Orders Only [facility] [address] [place] [address] Dionicio Christensen MD 05/14/2024 Orders Only [facility] Primary Care at [address] [address] Dionicio Christensen MD 05/14/2024 Telephone [facility] Primary Care at [address] [address] Dionicio Christensen MD Med Refill from Last 3 Months Allergies Active Allergy Reactions Criticality Noted Date Comments Sulfa (Sulfonamide Antibiotics) Rash Medium Sulfanilamide Rash Medium Tetracycline Rash Medium Medications aspirin 81 mg tablet take 1 tablet by oral route every day 0 0 06/03/19 17 Active cholecalcifero l (VITAMIN D3) 1,000 unit capsule 0 10/13/19 10 Active vitamin B complex capsule Take 1 capsule by mouth daily Active levothyroxine (SYNTHROID) 100 mcg tablet Take 1 tablet (100 mcg total) by mouth daily 90 tablet 3 05/14/19 25 Active losartan (COZAAR) 100 mg tablet Take 1 tablet (100 mg total) by mouth daily To lower BP 90 tablet 3 05/14/[address] (PROTONIX) 40 mg EC tablet Take 1 tablet (40 mg total) by mouth daily 90 tablet 3 05/14/19 25 Active simvastatin (ZOCOR) 20 mg tablet Take 1 tablet (20 mg total) by mouth nightly 90 tablet 3 05/14/19 25 Active LORazepam (ATIVAN) 0.5 mg tablet Take 1 tablet (0.5 mg total) by mouth 3 (three) times a day 90 tablet 5 07/06/19 25 Active venlafaxine XR (EFFEXOR-XR) 150 mg 24 hr capsule Take 1 capsule (150 mg total) by mouth daily 90 capsule 3 07/06/19 25 Active venlafaxine XR (EFFEXOR-XR) 150 mg 24 hr capsule Take 1 capsule (150 mg total) by mouth daily 90 capsule 3 06/30/19 24 025 Discontinued(Re order) LORazepam (ATIVAN) 0.5 mg tablet TAKE 1 TABLET BY MOUTH 3 TIMES DAILY 90 tablet 5 02/09/20 24 025 Discontinued(Re order) linaCLOtide (LINZESS) 145 mcg capsule Take 1 capsule (145 mcg total) by mouth daily 15 capsule 1 02/20/20 24 025 Discontinued Active Problems Problem Noted Date Diagnosed Date Iron deficiency anemia 07/07/2024 Pes anserine bursitis 07/02/2024 Greater trochanteric bursitis of left hip 2024 Primary osteoarthritis of left knee 07/02/2024 Moderate episode of recurrent major depressive d isorder 02/20/2024 Personal history of colonic polyps 07/02/2022 Overview (07/02/2022): Added automatically from request for surgery [id number] Anxiety 03/19/2022 Deficiency anemia 03/19/2022 IBS (irritable [...] Influenza, Quadrivalent, Spl it, Preservative Free, Intramuscular 03/12/2023,02/19/2018 Influenza, Trivalent, IM (MDV) 03/02/2011 Influenza, Unspecified 07/05/2024(Deferr ed: Patient Refused),02/20/2024(Deferred: Patient Refused),02/19/2024,02/08/2022, 021,02/25/2020,02/17/2019,01/26/2019(D eferred: Patient Refused - [...] points, staff should administer the PHQ-9) 0 07/05/2024 Personal Safety Answer Date Recorded Have you ever been in or are you currently in a harmful physical or emotional relationship or is someone making you feel afraid or unsafe? Denies 08/05/2022 Comments No Sex and Gender Information Value Date Recorded Sex Assigned at Not on file Legal Sex Female 11:52 PM SNUFF DRIER Gender Identity Female 02/20/2024 5:42 PM CDT Sexual Orientation Not on file Last Filed Vital Signs Vital Sign Reading Time Taken Comments Blood Pressure 134/82 07/05/2024 12:40 PM SNUFF DRIER Pulse 94 07/05/2024 12:40 PM SNUFF DRIER Temperature 36.6 C (97.8 F) 07/05/2024 12:40 PM SNUFF DRIER Respiratory Rate 16 07/05/2024 12:40 PM SNUFF DRIER Oxygen Saturation 97% 07/05/2024 12:40 PM SNUFF DRIER Inhaled Oxygen Concentration - - Weight 80.7 kg (178 lb) 07/05/2024 12:40 PM SNUFF DRIER Height 175.3 cm (5' 9 ) 07/05/2024 12:40 PM SNUFF DRIER Body Mass Index 26.29 07/05/2024 12:40 PM SNUFF DRIER Plan of Treatment Upcoming Encounters Date Type Department Care Team (Latest Contact Info) Description 07/28/2024 12:30 PM CDT Hospital Encounter [facility] [address] [place] [address] Mark Dolan MD [address] [facility] [address] [place] [address] 07/28/2024 12:30 PM CDT - 07/28/2024 1:00 PM CDT Surgery [facility] [address] [place] [address] Mark Dolan MD 4 [facility] [address] [place] [address] ESOPHAGOGASTRODUODENOSCOPY Scheduled Procedures Name Priority Associated Diagnoses Date/Ti me ESOPHAGOGASTRODUODENOSCOPY Iron deficiency anemia, unspecified iron deficiency anemia type 07/28/2024 12:30 PM CDT Procedures Procedure Name Priority Date/Time Associated Diagnosis Comments XR PELVIS 1 OR 2 VIEWS Schedule Routine, Read Routine (OP Routine) 07/02/2024 11:59 AM SNUFF DRIER Acute pain of left knee XR KNEE LEFT 4 OR MORE VIEWS Schedule Routine, Read Routine (OP Routine) 07/02/2024 11:59 AM SNUFF DRIER Acute pain of left knee SCAN - LABS 07/01/2024 SCAN - LABS 06/29/2024 COLONOSCOPY 08/05/2022 10:07 AM CDT SCREENING MAMMOGRAM 2D BILATERAL Schedule Routine, Read Routine (OP Routine) 02/16/2019 DEXA AXIAL SKELETON BONE DENSITY 1 OR MORE SITES Schedule Routine, Read Routine (OP Routine) 07/03/2017 1:02 PM SNUFF DRIER Other osteoporosis without current pathological fracture HEPATITIS C AB REFLEX RNA QUANT PCR Routine 06/04/2017 8:13 AM SNUFF DRIER from Last 3 Months or Most Recently Relevant to Health Maintenance Results * XR Pelvis 1 or 2 Views (07/02/2024 11:59 AM SNUFF DRIER) Anatomical Region Laterality Modality Body, Pelvis N/A Digital Radiogra phy Narrative 07/02/2024 12:35 PM SNUFF DRIER AP pelvis shows no fracture subluxation or dislocation normal joint spaces Nicolas Gunter MD IMG XR PROCEDURES Final Resu lt * XR Knee Left 4 or More Views (07/02/2024 11:59 AM SNUFF DRIER) Anatomical Region Laterality Modality Lower Extremities, Knee Left Digital Radiography Narrative 07/02/2024 12:38 PM SNUFF DRIER Four views left knee shows end-stage osteoarthrosis with varus deformity grade 3 4 changes [id number] changes medial compartment subchondral sclerosis large osteophytes mediolateral femoral condyles medial tibial plateau no fractures Merchant view shows severe patellofemoral arthrosis on the left with bone wear and large lateral facet osteophyte moderate patellofemoral arthrosis right knee right knee well-preserved joint spaces on x-rays Nicolas Gunter MD IMG XR PROCEDURES Final Resu lt * SCAN - LABS (07/01/2024) Dionicio Christensen MD Edited Result - Final * SCAN - LABS (06/29/2024) Dionicio Christensen MD Final R esult * COLONOSCOPY (08/05/2022 10:07 AM CDT) Anatomical Region Laterality Modality Other Narrative Procedure Note Mark Dolan MD - 08/05/2022 10:07 AM CDT [facility] Patient Name: Maryellen Ornelas Procedure Date: 08/05/2022 10:07 AM Date of : 1960 Admit Type: Outpatient Age: 62 Gender: Female Attending MD: Mark Dolan M.D. Room: [facility] ENDOSCOPY ROOM 1 Note Status: Finalized Patient [...] under direct vision. The Pediatric Colonoscope PCF-H190L [id number] was introducedthrough the anus and advanced to [...] 10:07 AM Procedure Code(s): --- Professional --- 06379, Colonoscopy, flexible; diagnostic, including collection of specimen(s) by brushing or washing, when performed (separateprocedure) Diagnosis Code(s): --- Professional --- Z86.010, Personal history of colonic polyps K64.8, Other hemorrhoids CPT copyright 2020 [employer]. All rights reserved. The codes documented in this report are preliminary and upon cpc coder reviewmay be revised to meet current compliance requirements. Recognized by the [employer] for promoting quality in endoscopy Mark Dolan MD ENDOSCOPY PROCEDURES Final Result * Screening Mammogram 2D Bilateral (02/16/2019) Anatomical Region Laterality Modality Breast Bilateral Mammography Impressions 02/16/2019 Impression: Negative screening mammogram. Recommendation: Routine annual follow-up. Results found in Care Everywher. us Historical Provider MD STRUOD MAMMO PROCEDURES Marilyn l Result * Dexa Axial Skeleton Bone Density 1 or 2 Site (07/03/2017 1:02 PM SNUFF DRIER) Anatomical Region Laterality Modality Body N/A Other Impressions 07/03/2017 1:04 PM SNUFF DRIER Normal bone mineral density. COMMENT: W.H.O. defines [...] Henrique Rosenbaum M.D. Narrative 07/03/2017 1:04 PM SNUFF DRIER EXAM: DEXA Bone Density Axial HISTORY: Other [...] C RNA Quantitative PCR (06/04/2017 8:13 AM SNUFF DRIER) Hep C Ab Negative Negative CERNAKIA Blood specimen (specimen) 06/04/2017 8:13 AM SNUFF DRIER 06/04/2017 2:10 PM SNUFF DRIER Narrative PREM - 06/04/2017 3:01 PM SNUFF DRIER Dionicio Christensen MD LAB MICROBIOLOGY - GENE RAL ORDERABLES Final Result Performing Organization Address City/State/[facility] Co de Phone Number PREM [address] [place] [address] from Last 3 Months or Most Recently Relevant to Health Maintenance Insurance [facility] HMO/PPO Address: [facility] [address] [place] [address] [facility] HMO/PPO Address: [place] [address] [facility] HMO/PPO Address: [place] [address] Advance Directives For more information, please contact: [phone] * Full Code (Latest Code Status on File) Date Activated Date Inactivated Comments 08/05/2022 10:07 AM 08/05/2022 4:58 PM * Full Code Date Activated Date Inactivated Comments 08/05/2022 10:07 AM 08/05/2022 10:07 AM Care Teams Medicine Technologist Relationship Specialty Start Date End Date Dionicio Christensen MD PCP - General 05/13/13
--- OUTSIDE RECORDS SUMMARY | 2024-07-15 14:00 | XMS_ITS | Clinical Summary ---
Author Organization [facility] Address [address] [facility] [place] [address] Phone Care Team Providers Care Warhead Maintenance Specialist Name Role Phone Dionicio Christensen MD Primary Care Provider [phone] Allergies Active Allergy Reactions Criticality Noted Date [...] tablet Take 100 mcg by mouth daily electronic development technician. Active LORazepam (ATIVAN) 1 mg tablet 5 Active pantoprazole (PROTONIX) 40 mg Tablet, Delayed Release (E.C.) Take 40 mg by mouth daily. Active losartan (COZAAR) 100 mg tablet Take 100 mg by mouth daily. 4 06/29/19 25 Active Problems Patient Care Coordination No te Formatting of this note migh t be different from the original. Primary Care: Dionicio Christensen MD Referring Provider: Dionicio Christensen MD [address] [place] [address] [address] [place] [address] Other: Problem Noted Date Diagnosed Date Abnormal mammogram of left breast 02/12/2017 Unspecified hypothyroidism 10/10/2010 Vitamin D deficiency 10/10/2010 Atypia 10/09/2010 Overview (04/25/2011): 09/18/10 RIGHT bx - flat epithelial atypia - single focus 04/25/11 EVISTA Assessment & Plan (04/20/2013 11:05 AM COPER HAND): On Evista 2 years mammo [place]ta Assessment & Plan (04/21/2012 10:35 AM COPER HAND): On evista 1 year MRI last week Mammo UTD ROV 1 year Assessment & Plan (04/25/2011 10:42 AM COPER HAND): Atypia Off testosterone and estrogen EVISTA today [...] Encounters Date Type Department Care Team Description 07/13/2024 External Device Data [facility] ABSTRACTION Provider, Abstract 07/10/2024 External Device Data [facility] ABSTRACTION Provider, Abstract 07/10/2024 External Device Data [facility] ABSTRACTION Provider, Abstract 07/07/2024 External Device Data [facility] ABSTRACTION Provider, Abstract 06/23/2024 External Device Data [facility] ABSTRACTION Provider, [...] on file Legal Sex Female 6:01 AM COPER HAND Gender Identity Not on file Sexual Orientation [...] CDT Respiratory Rate 16 04/18/2016 11:43 AM COPER HAND Oxygen Saturation 96% 02/21/2022 11:33 AM CDT Inhaled Oxygen Concentration - - Weight 81.6 kg (180 lb) 02/23/2024 11:24 AM CDT Height 175.3 cm (5' 9 ) 02/23/2024 11:24 AM CDT Body Mass Index 26.58 02/23/2024 11:24 AM CDT Plan of Treatment Upcoming Encounters Date Type Department Care Team (Late st Contact Info) Description 08/30/2024 1:00 PM CDT Appointment [facility] [address] [place] [address] [place] [address] Marycruz Altamirano, LEAD TECHNICAL ARCHITECT [address] [place] [address] 03/02/2025 10:45 AM CDT Appointment [facility] Breast Sellers [place] [phone] [place] [address] Marycruz Altamirano, LEAD TECHNICAL ARCHITECT [address] [place] [address] 03/02/2025 11:45 AM CDT Office Visit [facility] Breast Surgery [place] [address] [place] [address] Marycruz Altamirano, [facility] [address] [place] [address] Health Maintenance Due Date Last Done Comments Pre-Diabetes and Diabetes Screening 1960 CERVICAL CANCER SCREENING 1990 FIT-DNA Q 3 years 2005 FIT/FOBT Q 1 year 2005 Flex Sig/CT Colonography Q 5 years 2005 ZOSTER VACCINE (1 of 2) 2010 INFLUENZA VACCINE (#1) 2023 8, 02/21/2016, 03/02/2011 BREAST CANCER SCREENING 03/05/2025 03/05/20, 02/23/2024, 02/21/2023, Additional history exists DTAP/TDAP/TD VACCINES (3 - T d or Tdap) 05/24/2030 05/24/2020, 12/29/2009 COLORECTAL SCREENING 08/05/2032 08/05/2022, 08/05/2022, 06/28/2014, Additional history exists Colorectal Cancer Screening 08/05/2032 RSV VACCINE (60+ or ) (1 - 1-dose 75+ series) 2035 Procedures Procedure Name Priority Date/Time Associated Diagnosis [...] BI-RADS Category 2 benign findings. [address] [place] Narrative 03/05/2024 3:39 PM CDT MAMMOGRAPHY DIGITAL [...] BI-RADS Category 2 benign findings. DICTATION [address]ATION: [address] [place] Marycruz Altamirano LEAD TECHNICAL ARCHITECT MAMMO ORDERABLES Final Re sult from Last 3 Months or Most Recently Relevant to Health Maintenance Insurance [facility] CHOICE [id number] Advance Directives For more information, please contact: [phone] * Full Code (Latest Code Status on File) Date Activated Date Inactivated Comments 09/27/2010 7:46 AM 09/27/2010 1:32 PM Care Teams Warhead Maintenance Specialist Relationship Specialty Start Date End Date Dionicio Christensen MD [address] [place] [address] [place] [address] PCP - General Internal Medicine 09/18/10
--- OUTSIDE RECORDS SUMMARY | 2024-07-15 14:00 | XMS_ITS | Encounter Summary ---
Author Organization [facility] Address [address] [place] [address] Phone Care Team Providers Care Strategic Intelligence Officer Name Role Phone Dionicio Christensen MD Primary Care Provider Encounter Details Date Type Department Care Team (Late st Contact Info) Description 06/04/2017 Orders Only [facility] ProviderJoe MD [address] [place] [address] Social History Tobacco Use Types Packs/Day Years Used Date Smoking Tobacco: Never Alcohol Use Standard Drinks/Week Comments Yes 0 (1 standard drink = 0.6 oz pur e alcohol) Comments Unknown Sex and Gender Information Value Date Recorded Sex Assigned at Not on file Legal Sex Female 11:52 PM OILER BANDER Gender Identity Female 02/20/2024 5:42 PM CDT Sexual Orientation Not on file documented as of this encounter Plan of Treatment Upcoming Encounters Date Type Department Care Team (Latest Contact Info) Description 07/28/2024 12:30 PM CDT Hospital Encounter [address] [address] Mark Dolan MD [address] [facility] [address] [place] [address] 07/28/2024 12:30 PM CDT - 07/28/2024 1:00 PM CDT Surgery [address] [address] Mark Dolan MD [address] [place] [address] [address] [place] [address] ESOPHAGOGASTRODUODENOSCOPY Scheduled Procedures Name Priority Associated Diagnoses Date/Ti al ESOPHAGOGASTRODUODENOSCOPY Iron deficiency anemia, unspecified iron deficiency anemia type 07/28/2024 12:30 PM CDT documented as of this encounter Procedures Procedure Name Priority Date/Time Associated Diagnosis Comments DISCHARGE LABORATORY CUMULATIVE REPORT 06/04/2017 12:00 AM OILER BANDER documented in this encounter Results * DISCHARGE LABORATORY CUMULATIVE REPORT (06/04/2017 12:00 AM OILER BANDER) Narrative 06/04/2017 12:00 AM OILER BANDER Ordered by an unspecified provider. us Historical Provider LAB BLOOD ORDERABLES Marilyn l Result documented in this encounter Visit Diagnoses Not on filedocumented in this encounter Additional Health Concerns Infection Onset Date Last Indicated Resolved Time COVID: Suspected 05/17/2021 05/17/2021 05/27/2021 3:05 AM OILER BANDER documented as of this encounter Care Teams Strategic Intelligence Officer Relationship Specialty Start Date End Date Dionicio Christensen MD PCP - General 05/13/13 documented as of this encounter
--- OUTSIDE RECORDS SUMMARY | 2024-07-15 14:00 | XMS_ITS | Continuity of Care Document ---
Author Organization [facility] Address [address] [place] [address] Phone Care Team Providers Care Software Engineering Project Manager Name Role Phone Yari Redd Unavailable Unavailable Allergies, Adverse Reactions, Alerts Substance Reaction Status Criticality tetracycline Active No Information Sulfa (Sulfonamide Antibiotics) Active No Information Medications Medication Instructions Dosage Effective Dates (start - stop) Status Comments Aspirin Low Dose 81 mg tablet,delayed release take 1 tablet by oral route every day 81 MG - Active Effexor XR 150 mg capsule,extended release take 1 capsule by oral route every day 150 MG - Active lorazepam 2 mg/mL oral concentrate take 0.5 milliliter by oral route 3 times every day as needed 1 MG - Active Vitamin D2 50,000 unit capsule take 1 capsule by oral route every week - Active Zocor 20 mg tablet take 1 tablet by oral route every day in the evening 20 MG - Active Tirosint 100 mcg capsule take 1 capsule by oral route every day 100 MCG - Active Cheratussin AC 10 mg-100 mg/5 mL oral liquid take 5-10 ml as needed for cough at bedtime, may repeat after 4 hours if needed - No Longer Active Procedures Procedure Date OFFICE/OUTPATIENT VISIT, [facility] Results Test Name Date and Time Measure Units Reference Range Abnormal Flag Status Commen ts Panel Description: RAPID STREP Final RAPID STREP 10:26:00 NEGATIVE NORMAL - NEGATIVE Final Advance Directives Directive Yes / No Effective Date File Name No Information Encounters Encounter Description Practice Location Reason(s) For Visit Diagnoses Date Provider Providers Copied on Encounter OFFICE/OUTPAT IENT VISIT, [facility], [address] [place] [address], [address], tel:[phone] [place] SORE THROAT (chief complaint) Acute sinusitis Clare Greenberg. [address] [place] [address], [place], [address], [place]. tel:[phone] Family History Family Member Type Diagnosis Age At Onset No Information Payers Payer name Insurance type Covered libertarian ID Authoriza tion(s) No Information Social History [...] Mental Status Date Cognitive Assessment Orientation - [place] ed to time, place, person, situation. Patient Care Teams Name Effective Dates (start - stop) Status Members No Information
--- OUTSIDE RECORDS SUMMARY | 2024-07-15 14:00 | XMS_ITS | Encounter Summary ---
Author Organization [facility] Address [address] [place] [address] Care Team Providers Care Wood Piler Name Role Phone Dionicio Christensen MD Primary Care Provider [phone] Encounter Details Date Type Department Care Team (Late Contact Info) Description 07/13/2024 External Device Data [facility] Provider, Abstract NO ADDRESS ON FILE Social History Tobacco Use Types Packs/Day Years Used Date Smoking Tobacco: Former Cigarettes 0.3 15 Smokeless Tobacco: Never Comments:QUIT 20yrs ago Alcohol Use Standard Drinks/Week [...] on file Legal Sex Female 6:01 AM CHIEF BUSINESS OFFICER Gender Identity Not on file Sexual Orientation Not on file Occupation Industry Job Start Date Job End Date RN Not on file Not on file Not on file Not on file Not on file Not on file Not on file documented as of this encounter Plan of Treatment Upcoming Encounters Date Type Department Care Team (Late Contact Info) Description 08/30/2024 1:00 PM CDT Appointment [facility] [address] [place] [address] Marycruz Altamirano, SUPERCHARGER MECHANIC [address] [place] [phone] 03/02/2025 10:45 AM CDT Appointment [facility] [place] [address] [place] [phone] Marycruz Altamirano, SUPERCHARGER MECHANIC [address] [facility] [address] [place] [address] 03/02/2025 11:45 AM CDT Office Visit [facility] Breast Surgery [place] [address] [facility] [address] [place] [address] Marycruz Altamirano, SUPERCHARGER MECHANIC [address] [facility] [address] [place] [address] documented as of this encounter Visit Diagnoses Not on filedocumented in this encounter Care Teams Wood Piler Relationship Specialty Start Date End Date Dionicio Christensen MD [address] [facility] [address] [place] [phone] PCP - General Internal Medicine 09/18/10 documented as of this encounter
--- OUTSIDE RECORDS SUMMARY | 2024-07-15 14:00 | XMS_ITS | Clinical Summary ---
Author Organization [facility] Building A Address [address] [place] [address] Care Team Providers Care National Dedicated Truck Driver Name Role Phone Dionicio Christensen MD Primary [...] (07/02/2022): Added automatically from request for surgery [id number] Anxiety 03/19/2022 Deficiency anemia 03/19/2022 IBS (irritable [...] Assessment & Plan: On Evista 2 years o October Depression Overview (06/23/2020): Depression Encounters Date Type Department Care Team Description 07/07/2024 Telephone [facility] Gastroenterology at [address] [place] [phone] Deborah Patton LPN 07/05/2024 1:00 PM RADIO PROGRAM DIRECTOR Office Visit [facility] Primary Care at [address] [place] [phone] Dionicio Christensen MD Annual physical exam (Primary Dx); BMI 26.0-26.9,adult; Acquired hypothyroidism; Moderate episode of recurrent major depressive disorder (HCC); Multiple-type hyperlipidemia; Irritable bowel syndrome with constipation; Hypertension, essential; Gastroesophageal reflux disease without esophagitis; Iron deficiency anemia due to chronic blood loss; B12 deficiency; Arthritis of left knee 07/05/2024 Orders Only [facility] Primary Care at [address] [place] [phone] Dionicio Christensen MD Iron deficiency anemia due to chronic blood loss (Primary Dx) 07/02/2024 11:50 AM RADIO PROGRAM DIRECTOR Ancillary Procedure [facility] Imaging at [address] [phone] Acute pain of left knee 07/02/2024 11:45 AM RADIO PROGRAM DIRECTOR Ancillary Procedure [facility] Imaging at [address] [phone] Acute pain of left knee 07/02/2024 11:45 AM RADIO PROGRAM DIRECTOR Office Visit [facility] Orthopedic and Sports Medicine [address] [place] [phone] Nicolas Gunter MD Primary osteoarthritis of left knee (Primary Dx); Acute pain of left knee; Greater trochanteric bursitis of left hip; Pes anserine bursitis 07/02/2024 Telephone [facility] [address] [place] [phone] Nicolas Gunter MD Surgical Clearance 07/02/2024 Orders Only [facility] [address] [place] [phone] Nicolas Gunter MD Pes anserine bursitis (Primary Dx); Pre-op testing; S/P total knee arthroplasty, left 07/01/2024 Orders Only [facility] Health Information Management [address] [place] [phone] Dionicio Christensen MD 06/29/2024 Orders Only [facility] Health Information Management [address] [place] [phone] Dionicio Christensen MD 05/14/2024 Orders Only [facility] Primary Care at [address] [place] [phone] Dionicio Christensen MD 05/14/2024 Telephone [facility] Primary Care at [address] [place] [phone] Dionicio Christensen MD Med Refill from Last 3 Months Immunizations Immunization Administration Dates Next Due Hep A, Adult 05/05/2001 Hep B Vaccine 05/05/1999 Influenza, Quadrivalent, Spl it, Preservative Free, Intradermal 02/21/2016 Influenza, Quadrivalent, Spl it, Preservative Free, Intramuscular 03/12/2023,02/19/2018 Influenza, Trivalent, IM (LINO) 03/02/2011 Influenza, Unspecified 07/05/2024(Deferr ed: Patient Refused),02/20/2024(Deferred: Patient Refused),02/19/2024,02/08/2022, 021,02/25/2020,02/17/2019,01/26/2019(D eferred: Patient Refused - not available) MMR 01/11/2010 Pfizer SARS-CoV-2 Monovalent Vaccination (12+ Yrs) PURPLE 05/11/2020,04/23/2020 Td, adsorbed 12/28/2001 Tdap 05/24/2020,12/29/2009 Surgical History Surgery Date Site/Laterality Comments OTHER SURGICAL HISTORY 2005 ULNAR NERVE DECOMPRESSION R ELBOW OTHER SURGICAL HISTORY 2004 R SHOULDER REPAIR OTHER SURGICAL HISTORY 2003 R SHOULDER BONE SPUR REPAIR OTHER SURGICAL HISTORY 1985 SEPTORHINOPLASTY TURBENECTOMY SINUS TOTAL ABDOMINAL HYSTERECTOMY W/ BILATERAL SALPINGOOPHORECTOMY Hysterectomy, total abdominal, BSO SECTION section 1983, 1988 HYSTERECTOMY Hysterectomy LAPAROSCOPY COLONOSCOPY 06/28/2014 Medical History Medical History Date Comments 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 Hx Other Medical 02-ORTHOPEDIST Hx Other Medical [...] on file Legal Sex Female 11:52 PM RADIO PROGRAM DIRECTOR Gender Identity Female 02/20/2024 5:42 PM CDT Sexual Orientation Not on file Obstetrics History Last Filed Vital Signs Vital Sign Reading Time Taken Comments Blood Pressure 134/82 07/05/2024 12:40 PM RADIO PROGRAM DIRECTOR Pulse 94 07/05/2024 12:40 PM RADIO PROGRAM DIRECTOR Temperature 36.6 C (97.8 F) 07/05/2024 12:40 PM RADIO PROGRAM DIRECTOR Respiratory Rate 16 07/05/2024 12:40 PM RADIO PROGRAM DIRECTOR Oxygen Saturation 97% 07/05/2024 12:40 PM RADIO PROGRAM DIRECTOR Inhaled Oxygen Concentration - - Weight 80.7 kg (178 lb) 07/05/2024 12:40 PM RADIO PROGRAM DIRECTOR Height 175.3 cm (5' 9 ) 07/05/2024 12:40 PM RADIO PROGRAM DIRECTOR Body Mass Index 26.29 07/05/2024 12:40 PM RADIO PROGRAM DIRECTOR Plan of Treatment Upcoming Encounters Date Type Department Care Team (Latest Contact Info) Description 07/28/2024 12:30 PM CDT Hospital Encounter [address] [phone] Mark Dolan MD [address] [facility] [address] 07/28/2024 12:30 PM CDT - 07/28/2024 1:00 PM CDT Surgery [address] [address] Mark Dolan MD [address] [facility] [place] [address] ESOPHAGOGASTRODUODENOSCOPY Scheduled Procedures Name Priority Associated Diagnoses Date/Ti me ESOPHAGOGASTRODUODENOSCOPY Iron deficiency anemia, unspecified iron deficiency anemia type 07/28/2024 12:30 PM CDT Health Maintenance Due Date Last Done Comments Zoster Vaccine (1 of 2) 2010 Osteoporosis Screening-Bone Density Scan 07/04/2019 07/03/2017, 10/12/2008 Covid-19 Vaccine ( season) 2024 04/13/2021, 05/11/2020, 04/23/2020 Breast Cancer Screening-Mammogram 02/22/2025 02/23/2024, 02/23/2024, 02/21/2023, Additional history exists Depression Screening 07/05/2025 07/05/2024, 02/20/2024, 06/30/2023, Additional history exists Regular Well Visit/Exam 18-64 07/05/2025 07/05/2024, 06/30/2023, 06/27/2022, Additional history exists Colon Cancer Screening-Colonoscopy 08/06/2027 [...] Read Routine (OP Routine) 07/02/2024 11:59 AM RADIO PROGRAM DIRECTOR Acute pain of left knee XR KNEE LEFT 4 OR MORE VIEWS Schedule Routine, Read Routine (OP Routine) 07/02/2024 11:59 AM RADIO PROGRAM DIRECTOR Acute pain of left knee SCAN - LABS 07/01/2024 SCAN - LABS 06/29/2024 COLONOSCOPY 08/05/2022 10:07 AM CDT SCREENING MAMMOGRAM 2D BILATERAL Schedule Routine, Read Routine (OP Routine) 02/16/2019 DEXA AXIAL SKELETON BONE DENSITY 1 OR MORE SITES Schedule Routine, Read Routine (OP Routine) 07/03/2017 1:02 PM RADIO PROGRAM DIRECTOR Other osteoporosis without current pathological fracture HEPATITIS C AB REFLEX RNA QUANT PCR Routine 06/04/2017 8:13 AM RADIO PROGRAM DIRECTOR from Last 3 Months or Most Recently Relevant to Health Maintenance Results * XR Pelvis 1 or 2 Views (07/02/2024 11:59 AM RADIO PROGRAM DIRECTOR) Anatomical Region Laterality Modality Body, Pelvis N/A Digital Radiogra phy Narrative 07/02/2024 12:35 PM RADIO PROGRAM DIRECTOR AP pelvis shows no fracture subluxation or dislocation normal joint spaces us Nicolas Gunter MD IMG XR PROCEDURES Final Resu lt * XR Knee Left 4 or More Views (07/02/2024 11:59 AM RADIO PROGRAM DIRECTOR) Anatomical Region Laterality Modality Lower Extremities, Knee Left Digital Radiography Narrative 07/02/2024 12:38 PM RADIO PROGRAM DIRECTOR Four views left knee shows end-stage osteoarthrosis with varus deformity grade 3 4 changes [id number] changes medial compartment subchondral sclerosis large osteophytes mediolateral femoral condyles medial tibial plateau no fractures Merchant view shows severe patellofemoral arthrosis on the left with bone wear and large lateral facet osteophyte moderate patellofemoral arthrosis right knee right knee well-preserved joint spaces on x-rays us Nicolas Gunter MD IMG XR PROCEDURES Final Resu lt * SCAN - LABS (07/01/2024) us Dionicio Christensen MD Edited Result - Final * SCAN - LABS (06/29/2024) us Dionicio Christensen MD Final R esult * COLONOSCOPY (08/05/2022 10:07 AM CDT) Anatomical Region Laterality Modality Other Narrative Procedure Note Mark Dolan MD - 08/05/2022 10:07 AM CDT [facility] Patient Name: Maryellen Ornelas Procedure Date: 08/05/2022 10:07 AM Date of : 1960 Admit Type: Outpatient Age: 62 Gender: Female Attending MD: Mark Dolan M.D. Room: [facility] ENDOSCOPY ROOM 1 Note Status: Finalized Patient [...] under direct vision. The Pediatric Colonoscope [id number]-H190L [id number] was introducedthrough the anus and advanced to [...] 10:07 AM Procedure Code(s): --- Professional --- 32176, Colonoscopy, flexible; diagnostic, including collection of specimen(s) by brushing or washing, when performed (separateprocedure) Diagnosis Code(s): --- Professional --- Z86.010, Personal history of colonic polyps K64.8, Other hemorrhoids CPT copyright 2020 [employer]. All rights reserved. The codes documented in this report are preliminary and upon outpatient coder reviewmay be revised to meet current compliance requirements. Recognized by the [employer] for promoting quality [...] 1 or 2 Site (07/03/2017 1:02 PM RADIO PROGRAM DIRECTOR) Anatomical Region Laterality Modality Body N/A Other Impressions 07/03/2017 1:04 PM RADIO PROGRAM DIRECTOR Normal bone mineral density. COMMENT: W.H.O. defines [...] Henrique Rosenbaum M.D. Narrative 07/03/2017 1:04 PM RADIO PROGRAM DIRECTOR EXAM: DEXA Bone Density Axial HISTORY: Other [...] C RNA Quantitative PCR (06/04/2017 8:13 AM RADIO PROGRAM DIRECTOR) Hep C Ab Negative Negative PREM Blood specimen (specimen) 06/04/2017 8:13 AM RADIO PROGRAM DIRECTOR 06/04/2017 2:10 PM RADIO PROGRAM DIRECTOR Narrative PREM - 06/04/2017 3:01 PM RADIO PROGRAM DIRECTOR Dionicio Christensen MD LAB MICROBIOLOGY - GENE RAL ORDERABLES Final Result PREM [id number] [address] [employer] [place] [address] from Last 3 Months or Most Recently Relevant to Health Maintenance Insurance Advance Directives For more information, please contact: [phone] * Full Code (Latest Code Status on File) Date Activated Date Inactivated Comments 08/05/2022 10:07 AM 08/05/2022 4:58 PM * Full Code Date Activated Date Inactivated Comments 08/05/2022 10:07 AM 08/05/2022 10:07 AM Care Teams National Dedicated Truck Driver Relationship Specialty Start Date End Date Dionicio Christensen MD PCP - General 05/13/13
[2024-07-15 19:17] LABS: Basophils Absolute Auto 0.1 K/mm3 (0.0-0.1); Basophils Percent Auto 1.1 % (0.2-1.2); Eosinophils Absolute Auto 0.3 K/mm3 (0-0.3); Eosinophils Percent Auto 3.4 % (0-4.4); Hematocrit 37.5 % (37.0-47.0); Hemoglobin 11.6 g/dL (12.0-15.0); Immature Granulocyte Absolute 0.03 K/mm3 (0.00-0.031); Immature Granulocyte Percent A 0.4 % (0-0.5); Lymphocytes Absolute Auto 2.17 K/mm3 (0.9-3.2); Lymphocytes Percent Auto 29.5 % (18.3-44.2); Mean Corpuscular HGB Conc 30.9 g/dl (32-36); Mean Corpuscular Hemoglobin 28.6 pg (26-34); Mean Corpuscular Volume 92.6 fl (80-100); Mean Platelet Volume 11.2 fl (7.4-10.4); Monocytes Absolute Auto 0.5 K/mm3 (0.1-0.6); Monocytes Percent Auto 7.2 % (2.6-8.5); Neutrophils Absolute Auto 4.3 K/mm3 (1.3-6.7); Neutrophils Percent Auto 58.4 % (45.5-73.1); Platelet Count Result 341 k/mm3 (150-375); Red Blood Count 4.05 M/mm3 (4.2-5.4); Red Cell Distribution Width 13.6 % (11.5-14.5); White Blood Count 7.4 K/mm3 (4.5-10.0)
[2024-07-15 19:23] LABS: CRP < 0.5 mg/dL (<1.0)
[2024-07-16 08:28] LABS: Protein, Total 7.3 g/dL (6.1-8.1)
[2024-07-16 20:43] LABS: Albumin 4.4 g/dL (3.8-4.8); Alpha 1 Globulin 0.4 g/dL (0.2-0.3); Alpha 2 Globulin 0.8 g/dL (0.5-0.9); Beta 1 Globulin 0.4 g/dL (0.4-0.6); Gamma Globulin 0.9 g/dL (0.8-1.7)
== END 2024-07-15 12:34 | disposition home or self-care (01) ==
LOC: ANHGOSHLAB 12:34
PROVIDERS: PCP Internal Medicine; Visit Provider Internal Medicine
DX: D50.0 Iron deficiency anemia secondary to blood loss (chronic) (principal); E53.8 Deficiency of other specified B group vitamins
CPT/HCPCS: 36415; 82607; 82728; 84155; 84165; 85025; 86140